=== PATIENT | male | born 1995 | race Caucasian/White ===

== ENCOUNTER 2016-09-04 17:55 | Emergency (ER) | payer OTHER, BC ==
[2016-09-04 18:28] VITALS: BP 150/86
--- NOTE | 2016-09-04 19:11 | PHYS DOC ---
Past Medical History Past Medical History: No Pertinent History Past Surgical History: Tonsillectomy Alcohol Use: None Drug Use: None Adult General Chief Complaint Chief Complaint: HAND PROBLEM [facility] HPI Patient is a 21 year old presents emergency department stating that on Thursday when he was at work he stretches hand with a hammer. He states that he is having pain along the second and third metacarpal area. He does have some bruising or discoloration with swelling noted. He has full range of motion of his hand equal diversity manager noted he does have tenderness noted over the proximal part of the hand. Patient states he taken ibuprofen the first evening and has not taken anything since. He states he only tenderness pain and discomfort is when he strained 2 grafts something or pressure is put along the metacarpal area. Patient is right-hand dominant Review of Systems Review of Systems Constitutional: Denies fever or chills [] Eyes: Denies change in visual acuity, redness, or eye pain [] HENT: Denies nasal congestion or sore throat [] Respiratory: Denies cough or shortness of breath [] Cardiovascular: No additional information not addressed in HPI [] GI: Denies abdominal pain, nausea, vomiting, bloody stools or diarrhea [] : Denies dysuria or hematuria [] Musculoskeletal: Denies back pain C/o left hand pain Integument: Denies rash or skin lesions [] Neurologic: Denies headache, focal weakness or sensory changes [] Allergies Allergies Allergies Coded Allergies Type Severity Reaction Last Updated Verified No Known Drug Allergies 09/04/16 No Physical Exam Physical Exam Constitutional: Well developed, well nourished, no acute distress, non-toxic appearance. [] HENT: Normocephalic, atraumatic, bilateral external ears normal, oropharynx moist, no oral exudates, nose normal. [] Eyes: PERRLA, EOMI, conjunctiva normal, no discharge. [] Neck: Normal range of motion, no tenderness, supple, no stridor. [] Cardiovascular:Heart rate regular rhythm, no murmur [] Lungs & Thorax: Bilateral breath sounds clear to auscultation [] Skin: Warm, dry, no erythema, no rash. [] Back: No tenderness Extremities: Left second and third metacarpal tenderness, no cyanosis, no clubbing, ROM intact, no edema. Patient with redness swelling and tenderness noted the area does appear to be black and blue. Patient has good diversity manager noted equal strength refill brisk less than 2 seconds good sensation noted Neurologic: Alert and oriented X 3, normal motor function, normal sensory function, no focal deficits noted. [] Psychologic: Affect normal, judgement normal, mood normal. [] Current Patient Data Vital Signs Vital Signs Date Time Temp Pulse Resp B/P Pulse Ox O2 Delivery O2 Flow Rate FiO2 09/04/16 18:28 98.2 96 18 97 Room Air 98.2 EKG EKG [] Radiology/Procedures Radiology/Procedures [] Course & Med Decision Making Course & Med Decision Making Pertinent Labs and Imaging studies reviewed. (See chart for details) X-rays were negative per Dr Jarrett. Patient will be recommended to use ice packs elevation Tylenol or ibuprofen for pain and discomfort. He may try to use an Dudley wrap to help with comfort. Patient will be discharged home in stable condition signs symptoms to return back to emergency department been provided. He continues to have pain and discomfort he may follow up with orthopedic as needed. Patient agrees with discharge instructions treatment regimens and follow -up recommendations. [] Dragon Disclaimer Dragon Disclaimer This electronic medical record was generated, in whole or in part, using a voice recognition dictation system. Departure Departure Impression: Primary Impression: Contusion of left hand Disposition: 01 HOME, SELF-CARE Condition: STABLE Referrals: DESI BOYD DO (PCP) THAD WHITFIELD MD Patient Instructions: Hand Contusion, [id number] Additional Instructions: X-ray was negative for any bony abnormalities. Tylenol or ibuprofen for pain and discomfort. Ice packs on 20 minutes off 12 minutes several times a day. Elevation as much as possible. You may wear an Dudley wrap to help with pain and discomfort. Follow-up with orthopedic as needed for severe pain and discomfort the last greater than a week. Return to emergency prior signs symptoms of become worse. BLAKE CHOUDHURY [employer] DOCUMENT PREPARER Sep 04, 2016 19:11
--- NOTE | 2016-09-05 08:01 | RAD ---
Left hand radiographs History: Left hand pain after trauma. Swelling. Comparison: None. Findings: PA, lateral, and oblique views of the left hand. No acute fracture or dislocation is identified. Impression: No acute osseous traumatic injury identified.
== END 2016-09-04 19:34 | disposition home or self-care (01) ==
LOC: ER 17:55
DX: S60.222A Contusion of left hand, initial encounter (principal); X58.XXXA Exposure to other specified factors, initial encounter; Y93.89 Activity, other specified; Y92.69 Other specified industrial and construction area as the place of occurrence of the external cause; Y99.8 Other external cause status
CPT/HCPCS: 73130; 99284